=== PATIENT | female | born 1970 | race Caucasian/White ===

== ENCOUNTER 2018-02-04 22:38 | Observation (INO) ==
--- NOTE | 2018-02-04 23:11 | ED ---
HPI General Chief Complaint: Chest Pain Stated Complaint: Cardiac complaint Time Seen by Provider: 02/04/18 22:43 History of Present Illness HPI narrative: Patient presents to the emergency department complaining of bilateral lower extremity swelling and chest pain. States that the swelling has been present for the last hour and a half. He took 2 aspirin 81 mg each, one chewable Tums, and 2 chewable Gas-X. Over the past couple days she has been feeling somewhat gassy. Chest painf patient has a positive family history of MA. Iis described as being sternal, nonradiating, hours in duration, sharp, aggravated by anxiety, alleviated somewhat by her to ranitidine. One episode a week ago and another today. She traveled recently from [facility] here. Denies fever, chills, nausea, vomiting, but reports some shortness of breath in the last hour and a half. Patient has a family history of MA. States her mom had an MA in the 70s, dad in his 50s, and uncle, maternal grandmother and grandfather, and step brother had MA in 47/48. Complete Quality Measures for STEMI Alert Patients Related Data Allergies Allergy/AdvReac Type Severity Reaction Status Date / Time acetaminophen Allergy Severe Edema Verified 02/04/18 22:58 [From Tylenol-Codeine #3] codeine Allergy Severe Edema Verified 02/04/18 22:58 [From Tylenol-Codeine #3] prochlorperazine Allergy Severe Edema Verified 02/04/18 22:58 [From Compazine] ketorolac [From Toradol] Allergy Intermediate Abdominal Verified 02/04/18 22:58 Pain Review of Systems ROS: all other systems reviewed are negative [facility] Medical History Medical History Anxiety (Acute) Surgical History Surgical History History of breast augmentation (Acute) Social History Social History Recent Travel in [facility] within the Last 8 Weeks: No Recent Out of Country Travel within the Last 8 Weeks: No Exam Narrative Exam Narrative: GENERAL: Anxious on exam. SKIN: Focused skin assessment warm/dry. HEAD: Atraumatic. Normocephalic. EYES: Pupils equal and round. No scleral icterus. No injection or drainage. ENT: No nasal bleeding or discharge. Mucous membranes pink and moist. NECK: Trachea midline. No JVD. CARDIOVASCULAR: Regular rate and rhythm. No murmur appreciated. RESPIRATORY: No accessory muscle use. Clear to auscultation. Breath sounds equal bilaterally. GASTROINTESTINAL: Abdomen soft, non-tender, nondistended. Hepatic and splenic margins not palpable. MUSCULOSKELETAL: No obvious deformities. No clubbing. No cyanosis. Bilateral lower extremity edema. NEUROLOGICAL: Awake and alert. No obvious cranial nerve deficits. Motor grossly within normal limits. Normal speech. PSYCHIATRIC: Appropriate mood and affect; insight and judgment normal. Course Initial Documented Vital Signs Pulse Rate 75 02/04/18 22:40 Respiratory Rate 20 02/04/18 22:40 Blood Pressure 123/70 02/04/18 22:40 Pulse Oximetry 100 02/04/18 22:40 Last Documented Vital Signs Pulse Rate 84 02/04/18 23:05 Respiratory Rate 20 02/04/18 23:05 Blood Pressure 143/73 H 02/04/18 23:05 Pulse Oximetry 99 02/04/18 23:05 Medical Decision Making MDM Narrative Medical decision making narrative: She presents to the emergency department complaining of bilateral lower extremity edema and chest pain. Placed on cardiac sonographer, continuous pulse ox, IV access obtained. She given 162 mg of aspirin total to 324 mg p.o. Labs, chest x-ray, bilateral lower extremity ultrasound, EKG ordered. Patient also given 1 mg IV Ativan for anxiety. CTA: neg for PE U/S; No DVT CXR: No acute process Labs: d-dimer elevated Will admit to chest pain obs. Medical Screen Exam Complete: Yes Emergency Medical Condition: Yes Differential Diagnosis Differential Diagnosis: ACS, PE, anxiety,musculoskeletal chest pain POC Test Results POC Urine Results: Negative Lab Data Result diagrams: 02/04/18 23:10 02/04/18 23:10 Lab Results 02/04/18 02/04/18 02/04/18 Range/Units 23:10 23:10 23:10 WBC 9.3 (4.0-11.0) th/mm3 RBC 4.50 (4.00-5.30) mil/mm3 Hgb 11.0 L (11.6-15.3) gm/dL Hct 33.7 L (35.0-46.0) % MCV 74.7 L (80.0-100.0) fL MCH 24.3 L (27.0-34.0) pg MCHC 32.6 (32.0-36.0) % RDW 15.4 (11.6-17.2) % Plt Count 303 (150-450) th/mm3 MPV 9.5 (7.0-11.0) fL Neut % (Auto) 66.7 (16.0-70.0) % Lymph % (Auto) 22.0 (9.0-44.0) % [place] % (Auto) 7.8 (0.0-8.0) % Eos % (Auto) 2.6 (0.0-4.0) % Baso % (Auto) 0.9 (0.0-2.0) % Neut # (Auto) 6.2 (1.8-7.7) th/mm3 Lymph # (Auto) 2.0 (1.0-4.8) th/mm3 [place] # (Auto) 0.7 (0.0-0.9) th/mm3 Eos # (Auto) 0.2 (0.0-0.4) th/mm3 Baso # (Auto) 0.1 (0.0-0.2) th/mm3 WBC Differential . Differential Comment Auto diff final PT 10.1 (9.8-11.6) sec INR 1.0 Ratio APTT 23.6 L (24.3-30.1) sec D-Dimer Quant (PE/DVT) 0.55 H (0.00-0.50) mg/L FEU Sodium 139 (136-145) meq/L Potassium 3.5 (3.5-5.1) meq/L Chloride 104 (98-107) meq/L Carbon Dioxide 24.3 (21.0-32.0) meq/L Anion Gap 11 (5-15) meq/L BUN 13 (7-18) mg/dL Creatinine 0.87 (0.50-1.00) mg/dL Estimated GFR 70 L (>89) mL/min Random Glucose 121 H (74-106) mg/dL Calcium 8.5 (8.5-10.1) mg/dL Magnesium 2.0 (1.5-2.5) mg/dL Total Bilirubin 0.2 (0.2-1.0) mg/dL AST 19 (15-37) U/L ALT 20 (10-53) U/L Alkaline Phosphatase 78 (45-117) U/L Total Creatine Kinase 66 (26-192) U/L Troponin I Less than 0.02 L (0.02-0.05) ng/mL B-Natriuretic Peptide (0-100) pg/mL Total Protein 7.6 (6.4-8.2) g/dL Albumin 3.9 (3.4-5.0) g/dL Urine Color (Yellw/Straw) Urine Clarity (Clear) Urine pH (5.0-8.5) Ur Specific [place] (1.002-1.035) Urine Protein (Neg-Trace) mg/dL Urine Glucose (UA) (Negative) mg/dL Urine Ketones (Negative) mg/dL Urine Occult Blood (Negative) Urine Nitrate (Negative) Urine Bilirubin (Negative) Urine Urobilinogen (Less than 2) mg/dL Ur Leukocyte Esterase (Negative) Urine RBC (0-3) /hpf Urine WBC (0-5) /hpf Ur Squamous Epith Cells (0-5) /hpf Urine Bacteria (None) /hpf Urine Trichomonas (None) /hpf Micro UA Comment Urine Culture Comments 02/04/18 02/05/18 Range/Units 23:10 00:25 WBC (4.0-11.0) th/mm3 RBC (4.00-5.30) mil/mm3 Hgb (11.6-15.3) gm/dL Hct (35.0-46.0) % MCV (80.0-100.0) fL MCH (27.0-34.0) pg MCHC (32.0-36.0) % RDW (11.6-17.2) % Plt Count (150-450) th/mm3 MPV (7.0-11.0) fL Neut % (Auto) (16.0-70.0) % Lymph % (Auto) (9.0-44.0) % [place] % (Auto) (0.0-8.0) % Eos % (Auto) (0.0-4.0) % Baso % (Auto) (0.0-2.0) % Neut # (Auto) (1.8-7.7) th/mm3 Lymph # (Auto) (1.0-4.8) th/mm3 [place] # (Auto) (0.0-0.9) th/mm3 Eos # (Auto) (0.0-0.4) th/mm3 Baso # (Auto) (0.0-0.2) th/mm3 WBC Differential Differential Comment PT (9.8-11.6) sec INR Ratio APTT (24.3-30.1) sec D-Dimer Quant (PE/DVT) (0.00-0.50) mg/L FEU Sodium (136-145) meq/L Potassium (3.5-5.1) meq/L Chloride (98-107) meq/L Carbon Dioxide (21.0-32.0) meq/L Anion Gap (5-15) meq/L BUN (7-18) mg/dL Creatinine (0.50-1.00) mg/dL Estimated GFR (>89) mL/min Random Glucose (74-106) mg/dL Calcium (8.5-10.1) mg/dL Magnesium (1.5-2.5) mg/dL Total Bilirubin (0.2-1.0) mg/dL AST (15-37) U/L ALT (10-53) U/L Alkaline Phosphatase (45-117) U/L Total Creatine Kinase (26-192) U/L Troponin I (0.02-0.05) ng/mL B-Natriuretic Peptide 19 (0-100) pg/mL Total Protein (6.4-8.2) g/dL Albumin (3.4-5.0) g/dL Urine Color Straw (Yellw/Straw) Urine Clarity Hazy H (Clear) Urine pH 7.0 (5.0-8.5) Ur Specific [place] 1.006 (1.002-1.035) Urine Protein Negative (Neg-Trace) mg/dL Urine Glucose (UA) Negative (Negative) mg/dL Urine Ketones Negative (Negative) mg/dL Urine Occult Blood Negative (Negative) Urine Nitrate Negative (Negative) Urine Bilirubin Negative (Negative) Urine Urobilinogen Less than 2 (Less than 2) mg/dL Ur Leukocyte Esterase Trace H (Negative) Urine RBC 1 (0-3) /hpf Urine WBC 3 (0-5) /hpf Ur Squamous Epith Cells 13 (0-5) /hpf Urine Bacteria Occasional H (None) /hpf Urine Trichomonas Rare H (None) /hpf Micro UA Comment Culture not ind Urine Culture Comments Culture not ind Imaging Data Radiologist's impression: Chest X-Ray 02/04/18 23:03 CONCLUSION: No acute cardiopulmonary process. Venous Doppler Study 02/04/18 23:03 CONCLUSION: No DVT. Chest CTA 02/05/18 01:33 CONCLUSION: No pulmonary embolus. ECG Data Attestation: I personally reviewed and interpreted this ECG as follows: Discharge Plan Discharge Disposition Patient Disposition: 30 Still Patient Discharge Condition Condition: Stable Discharge Details Diagnosis: Chest pain Physicians Team ED Provider: Zoe Carolina Primary Care Provider: Primary Care Ekta Alvarez Discharge Instructions Patient Printed Instructions: Chest Pain (ED) Discharge Interventions Interventions: Vital Signs Last Done: 02/04/18 23:05 Status ED Status: Admitted Observation Patient
[2018-02-04 23:17] LABS: Baso # (Auto) 0.1 th/mm3 (0.0-0.2); Baso % (Auto) 0.9 % (0.0-2.0); Eos # (Auto) 0.2 th/mm3 (0.0-0.4); Eos % (Auto) 2.6 % (0.0-4.0); Hematocrit 33.7 % (35.0-46.0); Mean Corpuscular HGB Conc 32.6 % (32.0-36.0); Mean Corpuscular Hemoglobin 24.3 pg (27.0-34.0); Mean Corpuscular Volume 74.7 fL (80.0-100.0); Mean Platelet Volume 9.5 fL (7.0-11.0); Mono # (Auto) 0.7 th/mm3 (0.0-0.9); Mono % (Auto) 7.8 % (0.0-8.0); Neut # (Auto) 6.2 th/mm3 (1.8-7.7); Neut % (Auto) 66.7 % (16.0-70.0); Platelet Count 303 th/mm3 (150-450); Red Cell Distribution Width 15.4 % (11.6-17.2); White Blood Count 9.3 th/mm3 (4.0-11.0)
[2018-02-04 23:30] LABS: Albumin 3.9 g/dL (3.4-5.0); Anion Gap 11 meq/L (5-15); Aspartate Aminotransferase 19 U/L (15-37); Blood Urea Nitrogen 13 mg/dL (7-18); Calcium 8.5 mg/dL (8.5-10.1); Carbon Dioxide 24.3 meq/L (21.0-32.0); Chloride 104 meq/L (98-107); Glomerular Filtration Rate 70 mL/min (>89); Glucose,Random 121 mg/dL (74-106); Potassium 3.5 meq/L (3.5-5.1); Sodium 139 meq/L (136-145)
[2018-02-04 23:31] LABS: Alanine Aminotransferase 20 U/L (10-53)
[2018-02-04 23:34] LABS: Alkaline Phosphatase 78 U/L (45-117); Total Protein 7.6 g/dL (6.4-8.2)
[2018-02-04 23:36] LABS: Creatine Kinase 66 U/L (26-192)
[2018-02-04 23:44] LABS: Activated Partial Thrombo Time 23.6 sec (24.3-30.1); D-Dimer 0.55 mg/L FEU (0.00-0.50); Prothrombin Time 10.1 sec (9.8-11.6)
--- NOTE | 2018-02-05 00:09 | US ---
EXAM DATE: 02/05/2018 12:06 AM EDT AGE/SEX: 47 years / Female INDICATIONS: Bilateral leg swelling. CLINICAL DATA: This is the patient's initial encounter. Patient reports that signs and symptoms have been present for 1 day and indicates a pain score of 2/10. MEDICAL/SURGICAL HISTORY: . Anxiety. Breast augmentation. COMPARISON: No prior exams available for comparison. TECHNIQUE: Venous ultrasound of both lower extremities was performed from the inguinal ligament to t he proximal calf. Real-time, color Doppler and spectral tracing, compression and augmentation techni ques were used. FINDINGS: Right Leg: Normal compression of the deep venous system from the inguinal region to the proximal [place] f. No echogenic clot is seen. Normal response of the venous system to augmentation and respiration. Left Leg: Normal compression of the deep venous system from the inguinal region to the proximal calf . No echogenic clot is seen. Normal response of the venous system to augmentation and respiration. Other: None. CONCLUSION: No DVT. Electronically signed by: John Desir MD 02/05/2018 12:08 AM EDT
--- NOTE | 2018-02-05 00:20 | XR ---
EXAM DATE: 02/05/2018 12:16 AM EDT AGE/SEX: 47 years / Female INDICATIONS: Chest pain. CLINICAL DATA: This is the patient's initial encounter. Patient reports that signs and symptoms have been present for 1 day and indicates a pain score of 2/10. MEDICAL/SURGICAL HISTORY: . Anxiety. . Breast augmentation. COMPARISON: No prior exams available for comparison. FINDINGS: A single AP view of the chest demonstrates the lungs to be symmetrically aerated without evidence of mass, infiltrate or effusion. The cardiomediastinal contours are unremarkable. Osseous structures a re intact. CONCLUSION: No acute cardiopulmonary process. Electronically signed by: John Desir MD 02/05/2018 12:18 AM EDT
[2018-02-05 01:04] LABS: Bacteria,Urine Occasional /hpf; Bilirubin,Urine Negative (Negative); Clarity,Urine Hazy (Clear); Color,Urine Straw (Yellw/Straw); Glucose,Urine (UA) Negative (Negative); Leukocyte Esterase,Urine Trace (Negative); Nitrite,Urine Negative (Negative); Specific Gravity,Urine 1.006 (1.002-1.035); Squamous Epithelial Cell,Urine 13 /hpf (0-5); Trichomonas,Urine Rare /hpf
--- NOTE | 2018-02-05 02:06 | CT ---
EXAM DATE: 02/05/2018 2:02 AM EDT AGE/SEX: 47 years / Female INDICATIONS: Chest pain, swelling in lower extremities. CLINICAL DATA: This is the patient's initial encounter. Patient reports that signs and symptoms have been present for 1 day and indicates a pain score of 6/10. MEDICAL/SURGICAL HISTORY: None. Breast augmentation. RADIATION DOSE: 10.68 CTDI (mGy) COMPARISON: No prior exams available for comparison. TECHNIQUE: Volumetric scanning was performed using a multi-row detector CT scanner during bolus infu melany of 60 ml Omnipaque 350 (iohexol) nonionic water-soluble contrast as a single exam dose. The nestor a was post processed with a variety of visualization algorithms including full volume maximum intensi ty projection and sliding thin slab reformation. Using automated exposure control and adjustment of t he mA and/or kV according to patient size, radiation dose was kept as low as reasonably achievable to obtain optimal diagnostic quality images. DICOM format image data is available electronically for r eview and comparison. FINDINGS: Pulmonary Arteries: No filling defects are seen in the pulmonary arteries out to the subsegmental ve ssels. The left and right pulmonary arteries are normal in diameter. Lung: There is minimal suspected atelectasis at the posterior lower lobes. Effusion: None. Mediastinum: No evidence of mediastinal or hilar adenopathy. Other: The axilla is unremarkable. Bilateral breast implants are present. CONCLUSION: No pulmonary embolus. Electronically signed by: John Desir MD 02/05/2018 2:05 AM EDT
[2018-02-05 04:18] LABS: Creatine Kinase 50 U/L (26-192)
[2018-02-05 07:45] LABS: Creatine Kinase 49 U/L (26-192)
--- NOTE | 2018-02-05 10:22 | P.HPCA ---
History of Present Illness Primary Care Physician: No Primary Care Physician Chief Complaint: Chest pain and bilateral leg edema History of Present Illness: This is a 47-year-old female that presents to ED via private vehicle with her and niece with complaint of bilateral lower extremity swelling as well as chest pain. Patient states that she developed swelling in her leg after driving for 3 hours. Was a little bit of discomfort. She discussed this with her who is a strategic client executive and on his evaluation she had pedal edema and he heard a crackle in her right base. She and her both state that the edema have significantly improved. About that time she started to feel discomfort in her chest that she initially stated was heartburn. She described as a deep pressure/shortness/achiness last for 3 hours in the center of her chest. Denied shortness of breath, nausea, or diaphoresis. She tried Gas-X, aspirin, and Tums without relief of her symptoms. She was given Ativan in the ED and she believes that helped quite a bit. She had a cardiac evaluation about 10 years ago including a normal stress test. Denies . Denies recent illnesses. Lifetime non-smoker. Her father in his 50s of myocardial infarction. Mother had an [place] at age 76. She has a half brother also has heart disease. - Diagnosis (1) Chest pain Review of Systems General: Patient denies fevers, chills. Droop for about 3 hours prior to having her symptoms. HEENT: Patient denies headache, sore throat, difficulty swallowing. Cardiovascular: Has the chest discomfort as mentioned above. Denies sensation of heart beating rapidly or irregularly. No syncope. Respiratory: Denies shortness of breath or inspirational chest discomfort. Denies coughing wheezing or hemoptysis. GI: Patient denies nausea, vomiting, diarrhea, abdominal pain, bloody stools. Musculoskeletal: Complains of bilateral lower extremity edema with some Neurovascular: Patient denies numbness, tingling, weakness in extremities. Denies headache. Endocrine: Denies polyuria and polydipsia. Hematologic: Denies easy bruising. Skin: Denies rash or itching. PMFSH - History History Provided By: Patient, Family Member - Medical History Medical History: Medical History (Last Updated 02/04/18 @ 22:53 by Deanne Moore) Anxiety - Surgical History Surgical History: Surgical History (Last Updated 02/04/18 @ 22:47 by Deanne Moore) History of breast augmentation - Tobacco History Smoking Status: Never smoker - Alcohol History How Often Do You Have a Drink Containing Alcohol: Monthly or less - Substance Use History Substance History: No History of Abuse - Travel History Recent Travel in the [place] Within the Last 8 Weeks: No Recent Travel Out of the Country Within the Last 8 Weeks: No - Immunization History Tetanus Immunization: <5 Years Hx Influenza Vaccine This Season: No Medications and Allergies Active Medications: Active Medications Sodium Chloride (Ns Flush) 2 ml IV.FLUSH PRN PRN PRN Reason: FLUSH AFTER USING IV ACCESS Allergies Allergy/AdvReac Type Severity Reaction Status Date / Time acetaminophen Allergy Severe Edema Verified 02/04/18 22:58 [From Tylenol-Codeine #3] codeine Allergy Severe Edema Verified 02/04/18 22:58 [From Tylenol-Codeine #3] prochlorperazine Allergy Severe Edema Verified 02/04/18 22:58 [From Compazine] ketorolac [From Toradol] Allergy Intermediate Abdominal Verified 02/04/18 22:58 Pain Home Medications Medication Instructions Recorded Confirmed Type propranolol 10 mg PO PRN PRN 02/05/18 02/05/18 History Exam Vital signs: Vital Signs 02/04/18 22:40 02/04/18 22:56 02/04/18 23:05 Pulse Rate 75 80 84 Respiratory Rate 20 20 20 Blood Pressure 123/70 139/73 143/73 H Pulse Oximetry 100 100 99 02/05/18 01:00 02/05/18 03:00 02/05/18 05:00 Pulse Rate 84 82 74 Respiratory Rate 16 16 15 Blood Pressure 125/58 L 130/68 109/61 Pulse Oximetry 99 99 100 02/05/18 07:19 02/05/18 07:20 Pulse Rate 73 Respiratory Rate 18 Blood Pressure 124/83 Pulse Oximetry 98 98 Intake & Output 02/04/18 02/05/18 02/05/18 18:59 06:59 18:59 Weight 86.183 kg Narrative: GENERAL: This is a well-nourished, well-developed patient, in no apparent distress. Patient speaks in clear complete sentences. Patient is pleasant. HEENT: Head is atraumatic and normocephalic. Neck is supple without lymphadenopathy and trachea is midline. No JVD or carotid bruits. CARDIOVASCULAR: Regular rate and rhythm without murmurs, gallops, or rubs. RESPIRATORY: Clear to auscultation. Breath sounds equal bilaterally. No wheezes , rales, or rhonchi. Chest wall is nontender. No use of accessory muscles. GASTROINTESTINAL: Abdomen is nontender, nondistended. Abdomen soft. No obvious pulsatile mass or bruit. No CVA tenderness. Strong femoral pulses bilaterally. Normal bowel sounds in all quadrants. MUSCULOSKELETAL: Patient is moving upper and lower extremities freely. Trace edema bilateral lower extremities. No Homans sign. Strong pulses in upper and lower extremities. NEUROLOGICAL: Patient is alert and oriented. Cranial nerves 2-12 are grossly intact. No focal deficits and speech is clear. SKIN: No rash and turgor is normal. Results 02/04/18 23:10 02/04/18 23:10 Cardiac Enzymes 02/04/18 02/04/18 02/05/18 Range/Units 23:10 23:10 03:35 AST 19 (15-37) U/L Troponin I Less than 0.02 L Less than 0.02 L (0.02-0.05) ng/mL B-Natriuretic Peptide 19 (0-100) pg/mL 02/05/18 Range/Units 06:50 AST (15-37) U/L Troponin I Less than 0.02 L (0.02-0.05) ng/mL B-Natriuretic Peptide (0-100) pg/mL Coagulation 02/04/18 02/04/18 Range/Units 23:10 23:10 PT 10.1 (9.8-11.6) sec APTT 23.6 L (24.3-30.1) sec B-Natriuretic Peptide 19 (0-100) pg/mL CBC 02/04/18 Range/Units 23:10 WBC 9.3 (4.0-11.0) th/mm3 RBC 4.50 (4.00-5.30) mil/mm3 Hgb 11.0 L (11.6-15.3) gm/dL Hct 33.7 L (35.0-46.0) % Plt Count 303 (150-450) th/mm3 Neut # (Auto) 6.2 (1.8-7.7) th/mm3 Lymph # (Auto) 2.0 (1.0-4.8) th/mm3 [place] # (Auto) 0.7 (0.0-0.9) th/mm3 Eos # (Auto) 0.2 (0.0-0.4) th/mm3 Baso # (Auto) 0.1 (0.0-0.2) th/mm3 Comprehensive Metabolic Panel 02/04/18 Range/Units 23:10 Sodium 139 (136-145) meq/L Potassium 3.5 (3.5-5.1) meq/L Chloride 104 (98-107) meq/L Carbon Dioxide 24.3 (21.0-32.0) meq/L BUN 13 (7-18) mg/dL Creatinine 0.87 (0.50-1.00) mg/dL Calcium 8.5 (8.5-10.1) mg/dL AST 19 (15-37) U/L ALT 20 (10-53) U/L Alkaline Phosphatase 78 (45-117) U/L Total Protein 7.6 (6.4-8.2) g/dL Albumin 3.9 (3.4-5.0) g/dL Intake and Output 02/04/18 02/05/18 02/05/18 22:59 06:59 14:59 Other: Weight 86.183 kg EKG interpretations - EKG EKG shows: sinus rhythm (EKGs are sinus rhythm with nonspecific T-wave changes.) Caprini VTE Risk Assessment Caprini VTE Risk Assessment: No/Low Risk (score <= 1) Caprini Risk Assessment Model: Point Value = 1 Point Value = 2 Point Value = 3 Point Value = 5 Age 41-60 Minor surgery BMI > 25 kg/m2 Swollen legs Varicose veins or History of unexplained or recurrent spontaneous Oral contraceptives or hormone replacement Sepsis (< 1 month) Serious lung disease, including pneumonia (< 1 month) Abnormal pulmonary function Acute myocardial infarction Congestive heart failure (< 1 month) History of inflammatory bowel disease Medical patient at bed rest Age 61-74 Arthroscopic surgery Major open surgery (> 45 min) Laparoscopic surgery (> 45 min) Malignancy Confined to bed (> 72 hours) Immobilizing plaster cast Central venous access Age >= 75 History of VTE Family history of VTE Factor V Leiden Prothrombin [id number] Lupus anticoagulant Anticardiolipin antibodies Elevated serum homocysteine Heparin-induced thrombocytopenia Other congenital or acquired thrombophilia Stroke (< 1 month) Elective arthroplasty Hip, pelvis, or leg fracture Acute spinal cord injury (< 1 month) Prophylaxis Regimen: Total Risk Factor Score Risk Level Prophylaxis Regimen 0-1 Low Early ambulation 2 Moderate Order ONE of the following: *Sequential Compression Device (SCD) *Heparin 5000 units SQ BID 3-4 Higher Order ONE of the following medications: *Heparin 5000 units SQ TID *Enoxaparin/Lovenox 40 mg SQ daily (WT < 150 kg, CrCl > 30 mL/min) *Enoxaparin/Lovenox 30 mg SQ daily (WT < 150 kg, CrCl > 10-29 mL/min) *Enoxaparin/Lovenox 30 mg SQ BID (WT < 150 kg, CrCl > 30 mL/min) AND/OR *Sequential Compression Device (SCD) 5 or more Highest Order ONE of the following medications: *Heparin 5000 units SQ TID (Preferred with Epidurals) *Enoxaparin/Lovenox 40 mg SQ daily (WT < 150 kg, CrCl > 30 mL/min) *Enoxaparin/Lovenox 30 mg SQ daily (WT < 150 kg, CrCl > 10-29 mL/min) *Enoxaparin/Lovenox 30 mg SQ BID (WT < 150 kg, CrCl > 30 mL/min) AND *Sequential Compression Device (SCD) Assessment and Plan - Assessment (1) Chest pain Code(s): R07.9 - Chest pain, unspecified Status: Acute - Plan * Chest pain: Patient has had serial cardiac enzymes and EKGs for ruling out purposes and will be seen by Dr. Weiss of cardiology in the chest pain center. She will undergo a nuclear ETT. Patient will be discharged home if her stress test is nonischemic with instructions to follow-up with PCP. Return to ED for interval issues. Patient is stable at this time. She is agreeable to this plan. (1) Chest pain Qualifiers: Chest pain type: unspecified Qualified Code(s): R07.9 - Chest pain, unspecified
--- NOTE | 2018-02-05 14:04 | NM ---
EXAM DATE: 02/05/2018 2:00 PM EDT AGE/SEX: 47 years / Female INDICATIONS: Angina. . Chest pain. CLINICAL DATA: This is the patient's initial encounter. Patient reports that signs and symptoms have been present for 1 day and indicates a pain score of 0/10. MEDICAL/SURGICAL HISTORY: None. . breast augmentation. COMPARISON: No prior exams available for comparison. DOSE: 8.4 mCi Tc 99m Myoview at rest 37.3 mCi [id number] at stress REST HEART RATE: 88 BPM TARGET HEART RATE: 149 BPM MAX HEART RATE: 180 BPM REST BLOOD PRESSURE: 144/84 mmHg MAX BLOOD PRESSURE: 170/82 mmHg EJECTION FRACTION: >70 % TECHNIQUE: The patient underwent upright treadmill exercise in the chest pain center. Continuous EC G tracing was monitored during stress. Gated SPECT imaging was performed after stress, and conventio nal SPECT imaging was performed at rest. The examination was performed on a SPECT/CT scanner, both a ttenuation-corrected and non-corrected datasets were reviewed. FINDINGS: Distribution: The maximum perfused segment at stress is in the anterolateral wall. Perfusion: The pattern of perfusion at stress is within normal limits. Gated Study: There are intact wall motion and wall thickening without hypokinetic or dyskinetic segme nts. The ejection fraction is calculated at >70%. RISK CATEGORY: Low (<1% Annual Motality Rate) CONCLUSION: 1. No evidence for stress-induced ischemia. 2. Intact wall motion with EF of greater than 70%. Electronically signed by: Vicente Garcia MD 02/05/2018 2:03 PM EDT
--- NOTE | 2018-02-05 14:29 | TR ---
Date Performed: 02/05/2018 Time Performed: 12:55:51 DOCTOR: Trevor Weiss DRUG LIST: CLINICAL HISTORY: REASON FOR TEST: Chest pain REASON FOR ENDING: OBSERVATION: CONCLUSION: JEAN PROTOCOL NUC ETT. NO CP OR SOB. COMMENTS: Conclusion: Normal treadmill exercise. No evidence of ischemia. No new STT wave russell es.
--- NOTE | 2018-02-05 14:56 | ECG ---
Date Performed: 02/05/2018 Time Performed: 06:52:09 PTAGE: 47 years EKG: Sinus rhythm NONSPECIFIC T-WAVE ABNORMALITY BORDERLINE ECG PREVIOUS TRACING : 02/05/2018 03.39 Since previous tracing, no significant change noted DOCTOR: Trevor Weiss Interpretating Date/Time 02/05/2018 14:55:02
--- NOTE | 2018-02-05 14:56 | ECG ---
Date Performed: 02/05/2018 Time Performed: 03:39:01 PTAGE: 47 years EKG: Sinus rhythm NONSPECIFIC T-WAVE ABNORMALITY BORDERLINE ECG PREVIOUS TRACING : 02/04/2018 22.41 Since previous tracing, no significant change noted DOCTOR: Trevor Weiss Interpretating Date/Time 02/05/2018 14:55:41
--- NOTE | 2018-02-05 15:04 | ECG ---
Date Performed: 02/04/2018 Time Performed: 22:41:29 PTAGE: 47 years EKG: Sinus rhythm POSSIBLE RIGHT VENTRICULAR CONDUCTION DELAY ST DEVIATION AND MODERATE T-WAVE ABNORMALITY, nonspecifi c ABNORMAL ECG NO PREVIOUS TRACING DOCTOR: Trevor Weiss Interpretating Date/Time 02/05/2018 15:03:18
== END 2018-02-05 17:21 | disposition home or self-care (01) ==
LOC: NEPHCDU 22:38 → PHEDA 22:38 → NEPE 22:38 → NEDA 02-05 04:33 → NEDH 02-05 08:01 → NEPHCDU 02-05 11:19
PROVIDERS: ADMIT Internal Medicine Interventional Cardiology; ATTEND Internal Medicine Interventional Cardiology
DX: R06.02 Shortness of breath; R12 Heartburn; F41.9 Anxiety disorder, unspecified; R60.0 Localized edema; R07.89 Other chest pain; Z82.49 Family history of ischemic heart disease and other diseases of the circulatory system; M79.89 Other specified soft tissue disorders